=== PATIENT | female | born 1935 | race Caucasian/White ===

== ENCOUNTER 2016-05-20 11:06 | Observation (INO) | payer BC ==
[~2016-05-20] VITALS: Ht 162.6 cm; Wt 76.2 kg
[~2016-05-20 11:06] MED LIST: COEN1CAP17 PO; OMEGCAP2 PO
[2016-05-20] MEDS ORDERED: ONDANSETRON INJ 2 MG/ML 2 ML VIAL IV STA (11:20)
[2016-05-20] MEDS ORDERED: NITROGLYCERIN 0.4 MG SL PER TAB CHARGE SL PRN ×2 (11:30→14:45)
--- NOTE | 2016-05-20 11:49 | DIAGNOSTIC IMAGING REPORT ---
CHEST ONE VIEW PORTABLE HISTORY: Atypical Chest Pain COMPARISON: Chest 08/04/2013. FINDINGS: The lungs are clear. Cardiac silhouette is normal in size. No pleural effusions. No pneumothorax. IMPRESSION: No acute process. Electronically signed by: Tulio Robles M.D. 05/20/2016 11:47 AM
[2016-05-20 11:50] LABS: BASO % 0.7 %; BASO ABS # 0.04 K/uL (0-0.2); COMPLETE YES; EOS % 3.2 %; HEMATOCRIT 43.1 % (37-47); IG% 0.2 %; LYMPH % 25.5 %; LYMPH ABS # 1.44 K/uL (1.2-3.4); MEAN CELL VOLUME 96.6 fL (80-100); MEAN CORPUSCULAR HEMOGLOBIN 33.6 pg (25-34); MEAN CORPUSCULAR HGB CONC 34.8 g/dl (32-36); MEAN PLATELET VOLUME 9.7 fL (7.4-10.4); MONO % 10.5 %; NEUT % 59.9 %; PLATELET COUNT 221 K/uL (130-400); RED BLOOD COUNT 4.46 M/uL (4.2-5.4); WHITE BLOOD COUNT 5.64 K/uL (4.8-10.8)
[2016-05-20 12:10] LABS: ALT/SGPT 76 U/L (12-78); BLOOD UREA NITROGEN 26 mg/dl (7-18); BUN/CREATININE RATIO 21.4 (10-20); CALCIUM 9.3 mg/dl (8.5-10.1); CARBON DIOXIDE 29 mmol/L (21-32); CHLORIDE 104 mmol/L (98-107); GLUCOSE 97 mg/dl (70-99); POTASSIUM 4.1 mmol/L (3.5-5.1); SODIUM 141 mmol/L (136-145)
[2016-05-20 12:16] LABS: ALKALINE PHOSPHATASE 104 U/L (45-117); AST/SGOT 153 U/L (15-37); CKMB/CK RATIO 0.8 (0-3.0)
[2016-05-20] MEDS ORDERED: LEVO25TA PO (12:19)
[2016-05-20] MEDS ORDERED: VYT1020 PO (12:19)
[2016-05-20] MEDS ORDERED: MULT1TAB22 PO (12:19)
[2016-05-20] MEDS ORDERED: ASPCH81X PO (12:19)
[2016-05-20] MEDS ORDERED: CALC-20 PO (12:19)
[2016-05-20] MEDS ORDERED: AMLO5TAB4 PO (12:19)
--- NOTE | 2016-05-20 13:17 | DIAGNOSTIC IMAGING REPORT ---
ABDOMEN 2 VIEWS CLINICAL HISTORY: lower chest pain pain COMPARISON STUDY: No previous studies for comparison. FINDINGS: The soft tissues, psoas shadows, renal outlines and intestinal gas pattern appear normal. There is no evidence for bowel obstruction. There is no evidence for free intraperitoneal air. No abnormal abdominal calcifications are seen. IMPRESSION: Normal study. Electronically signed by: Urbano Jeffries M.D. 05/20/2016 1:15 PM
[2016-05-20] MEDS ORDERED: OPTIRAY 320 IV PRN (13:45)
--- NOTE | 2016-05-20 14:19 | DIAGNOSTIC IMAGING REPORT ---
CHEST CTA for PULMONARY ARTERIES CT DOSE: 507.21 mGycm HISTORY: Atypical chest pain. TECHNIQUE: Multiaxial CT images of the chest were performed following the intravenous administration of contrast to evaluate the pulmonary arteries. Maximal intensity projection images were also obtained. COMPARISON STUDY: Chest 08/04/2013. FINDINGS: Bilateral renal peripelvic cysts. Cholecystectomy. The liver and adrenal glands are unremarkable. Normal spleen. 5 mm nodule within the left thyroid lobe. A 5 mm hypodense nodule within the thyroid isthmus. Tiny hiatus hernia. No pleural or pericardial effusions. The heart is normal in size. No mediastinal or hilar lymphadenopathy. No fractures within the visualized osseous structures. No pneumothorax. No focal lung consolidations to suggest pneumonia. Bibasilar densities favor mild atelectasis. Normal caliber thoracic aorta with no evidence for dissection. Nondiagnostic evaluation of the bilateral lower lobe subsegmental pulmonary arteries due to the motion artifact. Otherwise, the remaining pulmonary arteries show no filling defects to suggest embolus. IMPRESSION: 1. No evidence for pulmonary embolus with limitations as described above. 2. Subcentimeter thyroid nodules. Electronically signed by: Tulio Robles M.D. 05/20/2016 2:17 PM Dictated Date/Time: 05/20/2016 2:07 PM
[2016-05-20] MEDS ORDERED: ONDANSETRON INJ 2 MG/ML 2 ML VIAL IV PRN (14:45)
[2016-05-20] MEDS ORDERED: POLYETHYLENE (MIRALAX) 17 GM PACK PO PRN (14:45)
[2016-05-20] MEDS ORDERED: ACETAMINOPHEN 325 MG TAB PO PRN (14:45)
[2016-05-20] MEDS ORDERED: GI COCKTAIL PO ONE (15:15)
[2016-05-20] MEDS ORDERED: LIDOCAINE HCL 2% VISC SOLN 20 ML UDC ONE (15:17)
[2016-05-20] MEDS ORDERED: ALUMINUM/MAGNESIUM SUSP 30 ML UDC ONE (15:17)
[2016-05-20 15:21] LABS: PROTHROMBIN TIME (PATIENT) 10.2 SECONDS (9.0-12.0)
[2016-05-20] MEDS ORDERED: IV FLUIDS COMPLETED PRN (15:30)
--- NOTE | 2016-05-20 15:41 | History and Physical ---
History & Physical Date & Time of Service: May 20, 2016 at 15:27 Chief Complaint: Chest Pain Primary Care Physician: Kulwant Yun M.D. History of Present Illness Source: patient, family This is an 80 yo f that is presenting to us via EMS with acute onset chest pain which started at 1000. She states she was playing [employer] when she had acute onset epigastric pain which was radiating between both breast. Initially the pain was a sharp 10.5/10 pain which would not improve with walking , rest, positional. She tried taking an ASA 81 mg without improvement. She was concerned because it was unrelenting and called EMS and her daughter. En route her chest pain started to improve and is now not a pain but the sensation of pressure. Initially she also had diaphoresis and a "wobbly" sensation but no headache, syncope or N&V. This has resolved. W/U in ED was negative. She does not have a significant cardiac history and only smoked for 10 years of her life as a young adult. She has had a stress test in the past but not for symptoms but only screening and this was WNL. She notes it was a Dobutamine stress test because she broke her ankle in the past and is unable to walk on an incline. The daughter notes that she does have a history of anxiety however is unmedicated for this. Past Medical/Surgical History Medical Problems: (1) Osteoarthritis Status: Chronic Cholecystectomy CKD II HTN Hyperchol Anxiety Hysterectomy Family History No significant family history Social History Smoking Status: Former Smoker Smokeless Tobacco Use: No Alcohol Use: none Drug Use: none Marital Status: Housing status: lives alone Occupational Status: retired Multi-Drug Resistant Organisms History of MDRO: No Allergies Coded Allergies: Caffeine (Verified Allergy, Unknown, ., 05/20/16) Uncoded Allergies: BRONCHODILATORS (Allergy, Unknown, 06/28/02) SYMPATHOMIMADR (Allergy, Unknown, 08/04/13) Home Medications Scheduled Amlodipine Besylate (Norvasc), 5 MG PO DAILY Aspirin (Aspirin Chewable), 81 MG PO DAILY Calcium Carbonate-Vitamin D (Calcium 600 + D), 1 TAB PO BID Ezetimibe/Simvastatin (Vytorin 10-20 mg), 10-20 MG PO DAILY Levothyroxine Sodium (Synthroid), 25 MCG PO DAILY Multiple Vitamins W/ Minerals (One Daily For Women), 1 TAB PO DAILY Review of Systems Constitutional: No fever Eyes: No worsening of vision ENT: No hearing loss Respiratory: No cough, No dyspnea at rest, No dyspnea on exertion, No shortness of breath, No sputum, No wheezing Cardiovascular: + chest pain Abdomen: + nausea, + vomiting, No constipation, No diarrhea, No pain Musculoskeletal: No joint pain, No muscle pain Genitourinary - Female: No dysuria, No hematuria Neurologic: No memory loss, No numbness/tingling, No weakness Psychiatric: No depression symptoms Endocrine: No fatigue Integumentary: No itch, No rash Physical Exam Vital Signs Date Time Temp Pulse Resp B/P Pulse Ox O2 Delivery O2 Flow Rate FiO2 05/20/16 14:33 84 14 110/90 94 Room Air 05/20/16 13:02 82 16 157/77 95 Room Air 05/20/16 11:18 83 05/20/16 11:14 36.6 83 17 147/73 98 Room Air 05/20/16 11:14 95 Room Air 05/20/16 11:14 95 Room Air General Appearance: WD/WN, no apparent distress Head: normocephalic, atraumatic Eyes: normal inspection ENT: normal ENT inspection Neck: supple Respiratory/Chest: lungs clear, normal breath sounds, no respiratory distress, no accessory muscle use Cardiovascular: regular rate, rhythm, no murmur Abdomen/GI: normal bowel sounds, soft, no organomegaly, + tenderness (to palpation of epigastric area), + pertinent finding (no rebound, negative erazo , CVS, obturator and mcburney) Back: normal inspection, no CVA tenderness Extremities/Musculoskelatal: normal inspection, no calf tenderness, no pedal edema, + pertinent finding (brace left ankle) Neurologic/Psych: alert, normal mood/affect, oriented x 3 Skin: normal color, warm/dry, no rash Lymphatic: no adenopathy Diagnostics Laboratory Results Results Past 24 Hours Test 05/20/16 11:30 Range/Units White Blood Count 5.64 4.8-10.8 K/uL Red Blood Count 4.46 4.2-5.4 M/uL Hemoglobin 15.0 12.0-16.0 g/dL Hematocrit 43.1 37-47 % Mean Corpuscular Volume 96.6 80-100 fL Mean Corpuscular Hemoglobin 33.6 25-34 pg Mean Corpuscular Hemoglobin Concent 34.8 32-36 g/dl Platelet Count 221 130-400 K/uL Mean Platelet Volume 9.7 7.4-10.4 fL Neutrophils (%) (Auto) 59.9 % Lymphocytes (%) (Auto) 25.5 % Monocytes (%) (Auto) 10.5 % Eosinophils (%) (Auto) 3.2 % Basophils (%) (Auto) 0.7 % Neutrophils # (Auto) 3.38 1.4-6.5 K/uL Lymphocytes # (Auto) 1.44 1.2-3.4 K/uL Monocytes # (Auto) 0.59 0.11-0.59 K/uL Eosinophils # (Auto) 0.18 0-0.5 K/uL Basophils # (Auto) 0.04 0-0.2 K/uL RDW Standard Deviation 45.8 36.4-46.3 fL RDW Coefficient of Variation 13.0 11.5-14.5 % Immature Granulocyte % (Auto) 0.2 % Immature Granulocyte # (Auto) 0.01 0.00-0.02 K/uL Prothrombin Time 10.2 9.0-12.0 SECONDS Prothromb Time International Ratio 1.0 0.9-1.1 D-Dimer 990 0-500 ug/L FEU Sodium Level 141 136-145 mmol/L Potassium Level 4.1 3.5-5.1 mmol/L Chloride Level 104 98-107 mmol/L Carbon Dioxide Level 29 21-32 mmol/L Anion Gap 8.0 3-11 mmol/L Blood Urea Nitrogen 26 7-18 mg/dl Creatinine 1.20 0.60-1.20 mg/dl Est Creatinine Clear Calc Drug Dose 36.9 ml/min Estimated GFR () 48.7 Estimated GFR (Non- 42.1 BUN/Creatinine Ratio 21.4 10-20 Random Glucose 97 70-99 mg/dl Calcium Level 9.3 8.5-10.1 mg/dl Total Bilirubin 0.6 0.2-1 mg/dl Direct Bilirubin 0.2 0-0.2 mg/dl Aspartate Amino Transf (AST/SGOT) 153 15-37 U/L Alanine Aminotransferase (ALT/SGPT) 76 12-78 U/L Alkaline Phosphatase 104 45-117 U/L Total Creatine Kinase 61 26-192 U/L Creatine Kinase MB 0.5 0.5-3.6 ng/ml Creatine Kinase MB Ratio 0.8 0-3.0 Troponin I < 0.015 0-0.045 ng/ml Total Protein 6.7 6.4-8.2 gm/dl Albumin 3.3 3.4-5.0 gm/dl Lipase 235 73-393 U/L Diagnostic Radiology CHEST CTA for PULMONARY ARTERIES CT DOSE: 507.21 mGycm HISTORY: Atypical chest pain. TECHNIQUE: Multiaxial CT images of the chest were performed following the intravenous administration of contrast to evaluate the pulmonary arteries. Maximal intensity projection images were also obtained. COMPARISON STUDY: Chest 08/04/2013. FINDINGS: Bilateral renal peripelvic cysts. Cholecystectomy. The liver and adrenal glands are unremarkable. Normal spleen. 5 mm nodule within the left thyroid lobe. A 5 mm hypodense nodule within the thyroid isthmus. Tiny hiatus hernia. No pleural or pericardial effusions. The heart is normal in size. No mediastinal or hilar lymphadenopathy. No fractures within the visualized osseous structures. No pneumothorax. No focal lung consolidations to suggest pneumonia. Bibasilar densities favor mild atelectasis. Normal caliber thoracic aorta with no evidence for dissection. Nondiagnostic evaluation of the bilateral lower lobe subsegmental pulmonary arteries due to the motion artifact. Otherwise, the remaining pulmonary arteries show no filling defects to suggest embolus. IMPRESSION: 1. No evidence for pulmonary embolus with limitations as described above. 2. Subcentimeter thyroid nodules. ABDOMEN 2 VIEWS CLINICAL HISTORY: lower chest pain pain COMPARISON STUDY: No previous studies for comparison. FINDINGS: The soft tissues, psoas shadows, renal outlines and intestinal gas pattern appear normal. There is no evidence for bowel obstruction. There is no evidence for free intraperitoneal air. No abnormal abdominal calcifications are seen. IMPRESSION: Normal study. CHEST ONE VIEW PORTABLE HISTORY: Atypical Chest Pain COMPARISON: Chest 08/04/2013. FINDINGS: The lungs are clear. Cardiac silhouette is normal in size. No pleural effusions. No pneumothorax. IMPRESSION: No acute process. EKG bmp 66 qtc 438 NSR, no ischemic changes, PACs Impression Assessment and Plan This is an 80 yo f that is suffering from chest pain NYD. She does not have significant cardiac history however will r/o chest pain overnight and with dobutamine test in am. Will also r/o GERD with GI cocktail trial Chest pain NYD with suspicion of cardiac origin - tele admission- obs - troponin x 3 - GI cocktail trial - Dobutamine stress in am - TSH/T4 HTN - continue home meds Hypercholesterolemia - Continue home meds CKD III- stable - augment medication doses according to Cr[facility] Hypothyroidism - continue home meds - recheck tsh as may be reason for increased anxiety DVT prophylaxis Heparin because of renal insuff FULL CODE Philomena - daughter- [phone] Resident Physician Supervision Note: I interviewed and examined the patient. Discussed with Dr. Miranda Metzger and agree with findings and plan as documented in the note. Any exceptions or clarifications are listed here: None Pt with acute chest pain at rest, may have some gerd symptoms vitals are stable car is regular lungs are clear abdomen is benign at this point will have serial troponin, and consider stress testing 05/21/16. Consider GI work up as outpt if negative Daughter admits high anxiety in the patient Documented By: Flip Magallanes Level of Care Telemetry Resuscitation Status FULL RESUSCITATION VTE Prophylaxis VTE Risk Assessment Done? Y/N: Yes Risk Level: Moderate Given or contraindicated: Unfractionated heparin SQ Social Service Consult >80 yr.& Lives Alone Note Total Time: Critical Care 30 - 74 minutes Additional Copies To Kulwant Yun M.D.
--- NOTE | 2016-05-20 17:30 | EMERGENCY ROOM VISIT NOTE ---
History Report prepared by Joe: Melodie Reyes Under the Supervision of: Dr. Phil Verde D.O. First contact with patient: 11:11 Stated Complaint: CHEST PAIN History of Present Illness The patient is an 80 year old female arriving by ambulance from home who presents to the Emergency Room with complaints of a sudden onset of pain to her mid-lower chest 1 hour prior to arrival. Currently, she is in mild discomfort, but she states that she did have relief after taking 1 aspirin at home and nitroglycerin via EMS en route to the ED. However, she is now feeling slightly short of breath. Prior to the time of onset, the patient was sitting in a chair playing video games when she got up and started walking up the stairs. When she got about half way up the stairs, the patient suddenly contracted a severe pain to her mid-lower chest, which caused her to buckle over. During the episode, the patient also began sweating, but she denies becoming nauseous or experiencing radiation of her pain to her neck or down her jaw. Patient's last bowel movement was early this morning, and it appeared normal at that time. She denies headache, change in vision, fevers, vomiting, diarrhea, pain with urination, melena and numbness/weakness to her extremities. Patient has a history of hypertension and diabetes, which she controls with diet. 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 A total of 10 systems reviewed and were otherwise negative. Past Medical & Surgical Medical Problems: (1) Diabetes mellitus (2) HTN (hypertension) (3) Osteoarthritis Social History Smoking Status: Former Smoker Marital Status: Occupation Status: retired Current/Historical Medications Scheduled Amlodipine Besylate (Norvasc), 5 MG PO DAILY Aspirin (Aspirin Chewable), 81 MG PO DAILY Calcium Carbonate-Vitamin D (Calcium 600 + D), 1 TAB PO BID Ezetimibe/Simvastatin (Vytorin 10-20 mg), 10-20 MG PO DAILY Levothyroxine Sodium (Synthroid), 25 MCG PO DAILY Multiple Vitamins W/ Minerals (One Daily For Women), 1 TAB PO DAILY Allergies Coded Allergies: Caffeine (Verified Allergy, Unknown, ., 05/20/16) Uncoded Allergies: BRONCHODILATORS (Allergy, Unknown, 06/28/02) SYMPATHOMIMADR (Allergy, Unknown, 08/04/13) Physical Exam Vital Signs Date Time Temp Pulse Resp B/P Pulse Ox O2 Delivery O2 Flow Rate FiO2 05/20/16 14:33 84 14 110/90 94 Room Air 05/20/16 13:02 82 16 157/77 95 Room Air 05/20/16 11:18 83 05/20/16 11:14 36.6 83 17 147/73 98 Room Air 05/20/16 11:14 95 Room Air 05/20/16 11:14 95 Room Air Physical Exam GENERAL: Sitting up in bed, alert, well appearing, well nourished, no distress, non-toxic EYE EXAM: normal conjunctiva. OROPHARYNX: no exudate, no erythema, lips, buccal mucosa, and tongue normal and mucous membranes are moist NECK: supple, no nuchal rigidity, no adenopathy, non-tender LUNGS: Clear to auscultation. Normal chest wall mechanics HEART: no murmurs, S1 normal and S2 normal ABDOMEN: abdomen soft, non-tender, normo-active bowel sounds, no masses, no rebound or guarding. No palpable pulsatile mass. BACK: Back is symmetrical on inspection and there is no deformity, no midline tenderness, no CVA tenderness. SKIN: no rashes and no bruising UPPER EXTREMITIES: upper extremities are grossly normal. Radial pulses equal, bilaterally. LOWER EXTREMITIES: No pitting edema. Calves equal, bilaterally. NEURO EXAM: Normal sensorium, cranial nerves II-XII grossly intact, normal speech, no gross weakness of arms, no gross weakness of legs. Medical Decision & Procedures ER Provider Diagnostic Interpretation: Xray results per the radiologist and my interpretation. Other results have been interpreted by the radiologist and reviewed by me. CT:Per my review, radiologist interpretation. CHEST ONE VIEW PORTABLE HISTORY: Atypical Chest Pain COMPARISON: Chest 08/04/2013. FINDINGS: The lungs are clear. Cardiac silhouette is normal in size. No pleural effusions. No pneumothorax. IMPRESSION: No acute process. Electronically signed by: Tulio Robles M.D. 05/20/2016 11:47 AM ABDOMEN 2 VIEWS CLINICAL HISTORY: lower chest pain pain COMPARISON STUDY: No previous studies for comparison. FINDINGS: The soft tissues, psoas shadows, renal outlines and intestinal gas pattern appear normal. There is no evidence for bowel obstruction. There is no evidence for free intraperitoneal air. No abnormal abdominal calcifications are seen. IMPRESSION: Normal study. Electronically signed by: Urbano Jeffries M.D. 05/20/2016 1:15 PM CHEST CTA for PULMONARY ARTERIES CT DOSE: 507.21 mGycm HISTORY: Atypical chest pain. TECHNIQUE: Multiaxial CT images of the chest were performed following the intravenous administration of contrast to evaluate the pulmonary arteries. Maximal intensity projection images were also obtained. COMPARISON STUDY: Chest 08/04/2013. FINDINGS: Bilateral renal peripelvic cysts. Cholecystectomy. The liver and adrenal glands are unremarkable. Normal spleen. 5 mm nodule within the left thyroid lobe. A 5 mm hypodense nodule within the thyroid isthmus. Tiny hiatus hernia. No pleural or pericardial effusions. The heart is normal in size. No mediastinal or hilar lymphadenopathy. No fractures within the visualized osseous structures. No pneumothorax. No focal lung consolidations to suggest pneumonia. Bibasilar densities favor mild atelectasis. Normal caliber thoracic aorta with no evidence for dissection. Nondiagnostic evaluation of the bilateral lower lobe subsegmental pulmonary arteries due to the motion artifact. Otherwise, the remaining pulmonary arteries show no filling defects to suggest embolus. IMPRESSION: 1. No evidence for pulmonary embolus with limitations as described above. 2. Subcentimeter thyroid nodules. Electronically signed by: Tulio Robles M.D. 05/20/2016 2:17 PM Dictated Date/Time: 05/20/2016 2:07 PM Laboratory Results 05/20/16 11:30 Red Blood Count 4.46, Mean Corpuscular Volume 96.6, Mean Corpuscular Hemoglobin 33.6, Mean Corpuscular Hemoglobin Concent 34.8, Mean Platelet Volume 9.7, Neutrophils (%) (Auto) 59.9, Lymphocytes (%) (Auto) 25.5, Monocytes (%) (Auto) 10.5, Eosinophils (%) (Auto) 3.2, Basophils (%) (Auto) 0.7, Neutrophils # (Auto ) 3.38, Lymphocytes # (Auto) 1.44, Monocytes # (Auto) 0.59, Eosinophils # (Auto ) 0.18, Basophils # (Auto) 0.04 05/20/16 11:30 Test 05/20/16 11:30 White Blood Count 5.64 K/uL (4.8-10.8) Red Blood Count 4.46 M/uL (4.2-5.4) Hemoglobin 15.0 g/dL (12.0-16.0) Hematocrit 43.1 % (37-47) Mean Corpuscular Volume 96.6 fL (80-100) Mean Corpuscular Hemoglobin 33.6 pg (25-34) Mean Corpuscular Hemoglobin Concent 34.8 g/dl (32-36) Platelet Count 221 K/uL (130-400) Mean Platelet Volume 9.7 fL (7.4-10.4) Neutrophils (%) (Auto) 59.9 % Lymphocytes (%) (Auto) 25.5 % Monocytes (%) (Auto) 10.5 % Eosinophils (%) (Auto) 3.2 % Basophils (%) (Auto) 0.7 % Neutrophils # (Auto) 3.38 K/uL (1.4-6.5) Lymphocytes # (Auto) 1.44 K/uL (1.2-3.4) Monocytes # (Auto) 0.59 K/uL (0.11-0.59) Eosinophils # (Auto) 0.18 K/uL (0-0.5) Basophils # (Auto) 0.04 K/uL (0-0.2) RDW Standard Deviation 45.8 fL (36.4-46.3) RDW Coefficient of Variation 13.0 % (11.5-14.5) Immature Granulocyte % (Auto) 0.2 % Immature Granulocyte # (Auto) 0.01 K/uL (0.00-0.02) Prothrombin Time 10.2 SECONDS (9.0-12.0) Prothromb Time International Ratio 1.0 (0.9-1.1) D-Dimer 990 ug/L FEU (0-500) Anion Gap 8.0 mmol/L (3-11) Est Creatinine Clear Calc Drug Dose 36.9 ml/min Estimated GFR () 48.7 Estimated GFR (Non- 42.1 BUN/Creatinine Ratio 21.4 (10-20) Calcium Level 9.3 mg/dl (8.5-10.1) Total Bilirubin 0.6 mg/dl (0.2-1) Direct Bilirubin 0.2 mg/dl (0-0.2) Aspartate Amino Transf (AST/SGOT) 153 U/L (15-37) Alanine Aminotransferase (ALT/SGPT) 76 U/L (12-78) Alkaline Phosphatase 104 U/L (45-117) Total Creatine Kinase 61 U/L (26-192) Creatine Kinase MB 0.5 ng/ml (0.5-3.6) Creatine Kinase MB Ratio 0.8 (0-3.0) Troponin I < 0.015 ng/ml (0-0.045) Total Protein 6.7 gm/dl (6.4-8.2) Albumin 3.3 gm/dl (3.4-5.0) Lipase 235 U/L (73-393) Laboratory results per my review. Medications Administered Medications (Trade) Dose Ordered Sig/Gela Route Start Time Stop Time Status Last Admin Dose Admin Ondansetron HCl (Zofran Inj) 4 mg NOW STAT IV 05/20/16 11:20 05/20/16 11:22 DC 05/20/16 11:42 4 MG Nitroglycerin (Nitrostat Tab) 0.4 mg Q5M PRN SL 05/20/16 11:30 05/20/16 15:41 DC 05/20/16 14:42 0.4 MG ECG Indication: chest pain Rate (beats per minute): 80 Rhythm: sinus rhythm Findings: PAC, Q waves (anterior and inferior), other (Low voltage. T wave flattening. ) Change: no significant change (when compared to EKG from July,.) ED Course ED COURSE: Vital signs were reviewed and showed hypertension. The patients medical record was reviewed The above diagnostic studies were performed and reviewed. ED treatments and interventions as stated above. 1112: The patient was evaluated in room C10. A complete history and physical examination was performed. 1120: Zofran 4 mg IV was ordered. 1130: Nitroglycerin 0.4 mg SL was ordered. 1218: Upon reevaluation, the patient was pain free, but was still feeling slightly short of breath. 1330: I reevaluated the patient at this time and updated her on the results of her workup that have returned. The results of her CT are pending. 1420: Upon reevaluation, patient was doing well. I updated her on the results of her workup. The hospitalist will be contacted. 1430: After discussion with Dr. Magallanes, the patient will continue to be evaluated by the [facility] hospitalist for further management. Patient verbalized her understanding and agreement with this treatment plan. Based on the patients age, coexisting illnesses, exam and lab findings the decision to treat as an inpatient was made. The patient remained stable while under my care. The patient will be evaluated for further management. Medical Decision Differential diagnoses includes but is not limited to acute coronary syndrome, myocardial infarction, pericarditis, pulmonary embolus, aortic dissection, pneumonia, pneumothorax, musculoskeletal, shingles, esophageal. Patient is an 80-year-old female who presents the ER for lower chest pain radiating up into her jaw associated with some shortness of breath. Labs show no significant leukocytosis or anemia. BMP along with LFTs, bilirubin and lipase are unremarkable. Troponin was negative. D-dimer was positive. CT PE was negative for dissection/PE. This was performed with her pain radiating through to her back and a positive d-dimer. Pain was relieved completely with nitroglycerin. She was given aspirin previously. EKG was nondiagnostic. Chest x-ray was unremarkable. Patient was admitted to internal medicine for chest pain associated with shortness breath and jaw pain. Consults Time Called: 1420 Consulting Physician: Dr. Magallanes - [facility] Returned Call: 1430 Discussed the patient's case. She will continue to be evaluated by the [facility] hospitalist for further management. Impression Primary Impression: Precordial chest pain Scribe Attestation The scribe's documentation has been prepared under my direction and personally reviewed by me in its entirety. I confirm that the note above accurately reflects all work, treatment, procedures, and medical decision making performed by me. Departure Information Dispostion Being Evaluated By Hospitalist ([facility]) Referrals Kulwant Yun M.D. (PCP)
[2016-05-20 18:26] VITALS: O2SAT 94; Ht 162.6 cm; Wt 76.2 kg
[2016-05-20] MEDS ORDERED: ENOXAPARIN 40 MG/0.4 ML SYR SC SCH (19:00)
[2016-05-20] MEDS: CALCIUM 600MG + VIT D 400 IU TAB PO SCH (19:54)
[2016-05-20 20:00] VITALS: BP 152/77; PULSE 82; TEMP 36.5; O2SAT 94
[2016-05-20 23:59] VITALS: BP 156/74; PULSE 66; TEMP 36.8; O2SAT 95
[2016-05-21 05:15] VITALS: BP 127/73; PULSE 63; TEMP 36.8; O2SAT 94
[2016-05-21] MEDS ORDERED: LEVOTHYROXINE 25 MCG TAB PO SCH (06:30)
[2016-05-21 07:23] VITALS: BP 143/77; PULSE 72; TEMP 36.6; O2SAT 96
[2016-05-21 07:29] LABS: BUN/CREATININE RATIO 18.7 (10-20); CALCIUM 9.3 mg/dl (8.5-10.1); CREATININE 1.2 mg/dl (0.60-1.20); POTASSIUM 3.8 mmol/L (3.5-5.1)
[2016-05-21 07:40] LABS: THYROID STIMULATING HORMONE 1.86 uIu/ml (0.300-4.500)
[2016-05-21 07:57] VITALS: O2SAT 96
[2016-05-21] MEDS ORDERED: AMLODIPINE BESYLATE 5 MG TAB PO SCH (09:00)
[2016-05-21] MEDS ORDERED: ASPIRIN 81 MG ECTAB PO SCH (09:00)
[2016-05-21] MEDS ORDERED: EZETIMIBE/SIMVASTATIN 10/20 TAB PO SCH (09:00)
[2016-05-21] MEDS ORDERED: CEROVITE ADV FORMULA TAB PO SCH (09:00)
[2016-05-21] MEDS: CALCIUM 600MG + VIT D 400 IU TAB PO SCH (09:17)
[2016-05-21] MEDS ORDERED: DOBUTamine HCL 12.5 MG/ML 20 ML VIAL ONE (10:49)
[2016-05-21] MEDS ORDERED: ATROPINE SULFATE 0.1 MG/ML 5ML SYR ONE (10:49)
[2016-05-21] MEDS ORDERED: METOPROLOL TARTRATE 1 MG/ML VIAL ONE (10:49)
[2016-05-21] MEDS ORDERED: PERFLUTREN LIPID MICROSPHERE (DEFINITY) IV ONE (11:52)
[2016-05-21 12:00] VITALS: O2SAT 96
--- NOTE | 2016-05-21 12:41 | DOBUTAMINE ECHO ---
*NOTICE TO RECEIVING [employer] This information is strictly Confidential and protected under [place] law. [place] law prohibits you from making any further disclosure of this information unless further disclosure is expressly permitted by the written consent of the person to whom it pertains or is authorized by law. A general authorization for the release of medical or other information is not sufficient for this purpose. Hospital accepts no responsibility if the information is made available to any other person, INCLUDING THE PATIENT. Interpretation Summary * Name: TOÑITO HARRIS Study Date: 05/21/2016 10:08 AM BP: 146/73 mmHg * Patient Location: [facility]\S\N286\S\2 HR: 81 * : 1935 (M/d/yyyy) Gender: Female Height: 64 in * Age: 80 yrs Ethnicity: [place] Weight: 175 lb * Ordering Physician: Miranda Jackson * Referring Physician: Self, Referred * Performed By: Janneth Pride RDCS * * Reason For Study: Chest Pain * BSA: 1.8 m2 * The stress echocardiogram is negative for inducible ischemia. * The stress ECG response was normal * Baseline ECG was essentially normal. No symptoms were noted. Procedure Details * Left Ventricle The left ventricle is normal in size. There is borderline concentric left ventricular hypertrophy. Ejection Fraction = 60-65%. Left ventricular systolic function is normal. Resting wall motion: Normal. Stress wall motion: Appropriate increase in Left ventricular systolic function and decrease in cavity size. No stress induced segmental wall motion abnormalities. * Right Ventricle The right ventricle is normal in size and function. * Atria The left atrium is borderline dilated. Right atrial size is normal. The interatrial septum is intact with no evidence for an atrial septal defect. * Mitral Valve The mitral valve is normal in structure and function. There is mild mitral regurgitation. * Tricuspid Valve The tricuspid valve is normal in structure and function. There is mild tricuspid regurgitation. Right ventricular systolic pressure is normal. * Aortic Valve The aortic valve is normal in structure and function. The aortic valve is trileaflet. No aortic regurgitation is present. * Pulmonic Valve The pulmonary valve is not well seen, but the Doppler examination is normal without significant regurgitation or stenosis. Mild pulmonic valvular regurgitation. * Great Vessels The aortic root is normal size. No obvious dissection could be visualized. The pulmonary artery is not well visualized, but is probably normal size. * Pericardium There is no pericardial effusion. * Stress Parameters Rest heart rate was '81' BPM. Rest blood pressure was '146/73' Maximum heart rate achieved was 130 bpm. Maximum heart rate was 94 % of maximum age-predicted heart rate. Maximum blood pressure was '161/77' Maximum Dobutamine infusion rate was '30' mcg/kg/min. Dobutamine infusion was terminated due to achieving target heart rate A total of 2.5 mg of IV Metoprolol was administered to reverse Dobutamine-induced tachycardia. * Left Ventricular Diastolic Function Grade I diastolic dysfunction, (abnormal relaxation pattern). * * MMode 2D Measurements and Calculations * IVSd 0.91 cm * IVSs 1.3 cm * * LVIDd 3.0 cm * LVIDs 2.0 cm * LVPWd 1.0 cm * LVPWs 1.3 cm * * IVS/LVPW 0.87 * FS 34.6 % * EDV(Teich) 35.9 ml * ESV(Teich) 12.4 ml * EF(Teich) 65.4 % * * EDV(cubed) 27.9 ml * ESV(cubed) 7.8 ml * EF(cubed) 72.1 % * % IVS thick 41.0 % * % LVPW thick 19.4 % * * LV mass(C)d 80.6 grams * LV mass(C)dI 43.6 grams/m\S\2 * LV mass(C)s 70.6 grams * LV mass(C)sI 38.2 grams/m\S\2 * * SV(Teich) 23.5 ml * SI(Teich) 12.7 ml/m\S\2 * SV(cubed) 20.1 ml * SI(cubed) 10.9 ml/m\S\2 * * Ao root diam 2.8 cm * Ao root area 6.2 cm\S\2 * ACS 1.4 cm * LA dimension 3.2 cm * * LA/Ao 1.1 * * LVAd ap4 17.4 cm\S\2 * LVLd ap4 6.2 cm * EDV(MOD-sp4) 43.4 ml * EDV(sp4-el) 41.8 ml * LVAs ap4 9.3 cm\S\2 * LVLs ap4 5.0 cm * ESV(MOD-sp4) 16.7 ml * ESV(sp4-el) 14.6 ml * EF(MOD-sp4) 61.5 % * EF(sp4-el) 64.9 % * * LVAd ap2 16.2 cm\S\2 * LVLd ap2 6.6 cm * EDV(MOD-sp2) 37.0 ml * EDV(sp2-el) 33.7 ml * LVAs ap2 8.4 cm\S\2 * LVLs ap2 5.5 cm * ESV(MOD-sp2) 12.1 ml * ESV(sp2-el) 10.8 ml * EF(MOD-sp2) 67.3 % * EF(sp2-el) 68.0 % * * LVLd %diff 7.0 % * EDV(MOD-bp) 40.5 ml * LVLs %diff 9.2 % * ESV(MOD-bp) 14.7 ml * EF(MOD-bp) 63.6 % * * SV(MOD-sp4) 26.7 ml * SI(MOD-sp4) 14.4 ml/m\S\2 * * SV(MOD-sp2) 24.9 ml * SI(MOD-sp2) 13.5 ml/m\S\2 * * SV(MOD-bp) 25.8 ml * SI(MOD-bp) 13.9 ml/m\S\2 * * SV(sp4-el) 27.1 ml * SI(sp4-el) 14.7 ml/m\S\2 * * SV(sp2-el) 22.9 ml * SI(sp2-el) 12.4 ml/m\S\2 * * * Doppler Measurements and Calculations * MV E max robe 48.4 cm/sec * MV A max robe 90.3 cm/sec * * MV E/A 0.54 * * MV dec time 0.31 sec * * Ao V2 max 129.0 cm/sec * Ao max PG 6.7 mmHg * Ao max PG (full) 2.8 mmHg * * LV V1 max PG 3.8 mmHg * * LV V1 max 97.7 cm/sec * * MR max robe 452.5 cm/sec * MR max PG 81.9 mmHg * * PA V2 max 96.6 cm/sec * PA max PG 3.7 mmHg * * PI max robe 161.8 cm/sec * PI max PG 10.5 mmHg * PI dec slope 228.5 cm/sec\S\2 * PI P1/2t 207.4 msec * * TR max robe 183.3 cm/sec * * * *
[2016-05-21 13:19] VITALS: BP 145/82; PULSE 84; TEMP 36.4; O2SAT 92
--- NOTE | 2016-05-21 13:42 | Discharge Instructions ---
Discharge Instructions Admission Reason for Admission: Chest Pain Discharge Discharge Diagnosis / Problem: Chest pain Discharge Goals Goal(s): Decrease discomfort, Improve function, Increase independence, Improve disease control, Diagnostic testing, Therapeutic intervention Activity Recommendations Activity Limitations: resume your previous activity Driving or Machine Use: no limitations . Instructions / Follow-Up Instructions / Follow-Up Patient to be discharged home Chest pain unlikely cardiac in nature No changes in home medications If worsening chest pain, please report to ER Please keep appointment with Dr Daily and Dr Grajeda Current Hospital Diet Patient's current hospital diet: AHA Diet (Heart Healthy) Discharge Diet Recommended Diet: Low Sodium Diet (2gm Na), Low Fat Diet Pending Studies Studies pending at discharge: no Laboratory Results Lipid Panel Test 05/21/16 06:40 Range/Units Triglycerides Level 103 0-150 mg/dl Cholesterol Level 154 0-200 mg/dl HDL Cholesterol 78 mg/dl Cholesterol/HDL Ratio 2.0 LDL Cholesterol, Calculated 55 mg/dl Medical Emergencies . Who to Call and When: Medical Emergencies: If at any time you feel your situation is an emergency, please call 911 immediately. . Non-Emergent Contact Non-Emergency issues call your: Primary Care Provider Call Non-Emergent contact if: your pain is worsening . . "Provider Documentation" section prepared by Peter Stoddard. VTE Core Measure Inpt VTE Proph given/why not?: Unfractionated heparin SQ
[2016-05-21 13:55] VITALS: BP 145/82; PULSE 84; TEMP 36.4; O2SAT 92
--- NOTE | 2016-05-21 14:11 | Discharge Summary ---
Discharge Summary Admission Date: May 20, 2016 at 14:36 Discharge Date: May 21, 2016 Discharge Disposition: Home Principal Diagnosis: Chest pain rule out ACS Procedures: Dobutamine stress test Medication Reconciliation Continued Medications: Amlodipine Besylate (Norvasc) 5 Mg Tab 5 MG PO DAILY, TAB Aspirin (Aspirin Chewable) 81 Mg Chew 81 MG PO DAILY, TAB Calcium Carbonate-Vitamin D (Calcium 600 + D) 1 Tab Tab 1 TAB PO BID Ezetimibe/Simvastatin (Vytorin 10-20 mg) 1 Tab Tab 10-20 MG PO DAILY Levothyroxine Sodium (Synthroid) 25 Mcg Tab 25 MCG PO DAILY, TAB Multiple Vitamins W/ Minerals (One Daily For Women) 1 Tab Tab 1 TAB PO DAILY Discharge Exam Review of Systems: Constitutional: No chills, No fever Respiratory: No cough, No dyspnea on exertion, No shortness of breath, No sputum, No wheezing Cardiovascular: No chest pain, No orthopnea Abdomen: No diarrhea, No nausea, No pain, No vomiting Musculoskeletal: No joint pain, No muscle pain Genitourinary - Female: No dysuria, No urinary frequency Neurologic: No paralysis, No weakness Physical Exam: General Appearance: WD/WN, no apparent distress Neck: supple, no adenopathy Respiratory/Chest: chest non-tender, lungs clear, normal breath sounds Cardiovascular: no edema, no gallop Abdomen / GI: non tender, soft Neurologic/Psychiatric: alert, oriented x 3 Hospital Course HPI This is an 80 yo f that is presenting to us via EMS with acute onset chest pain which started at 1000. She states she was playing [employer] when she had acute onset epigastric pain which was radiating between both breast. Initially the pain was a sharp 10.5/10 pain which would not improve with walking, rest, positional. She tried taking an ASA 81 mg without improvement. She was concerned because it was unrelenting and called EMS and her daughter. En route her chest pain started to improve and is now not a pain but the sensation of pressure. Initially she also had diaphoresis and a "wobbly" sensation but no headache, syncope or N&V. This has resolved. W/U in ED was negative. She does not have a significant cardiac history and only smoked for 10 years of her life as a young adult. She has had a stress test in the past but not for symptoms but only screening and this was WNL. She notes it was a Dobutamine stress test because she broke her ankle in the past and is unable to walk on an incline. The daughter notes that she does have a history of anxiety however is unmedicated for this. Chest pain NYD with suspicion of cardiac origin - tele admission- obs - troponin x 3 neg - GI cocktail given x 1 - Dobutamine stress 05/21/15 - EF 60-65%, no regional wall abnormalities, no inducible ischemia - TSH/T4 WNL - Chest pain likely from anxiety vs musculoskeletal or both, pt reports lots of stressors within the family. Chest pain also reproducible on palpation HTN - continue home meds Hypercholesterolemia - Continue home meds CKD III- stable - augment medication doses according to CrCl Hypothyroidism - continue home meds - recheck tsh as may be reason for increased anxiety DVT prophylaxis Heparin because of renal insuff FULL CODE Total Time Spent: Greater than 30 minutes This includes examination of the patient, discharge planning, medication reconciliation, and communication with other providers. Discharge Instructions Please refer to the electronic Patient Visit Report (Discharge Instructions) for additional information. Additional Copies To Kulwant Yun M.D.
== END 2016-05-21 15:03 | disposition home or self-care (01) ==
LOC: ENRESERVDT → ENRESERVTM → EDBD 11:06 → C.EDC 11:07 → C.EDINP 14:36 → C.MED 21:58
PROVIDERS: ADMIT Internal Medicine; ATTEND Hospitalist
DX: R07.9 Chest pain, unspecified (principal); E78.00 Pure hypercholesterolemia, unspecified; N18.3 Chronic kidney disease, stage 3 (moderate); I12.9 Hypertensive chronic kidney disease with stage 1 through stage 4 chronic kidney disease, or unspecified chronic kidney disease; E03.9 Hypothyroidism, unspecified; N28.1 Cyst of kidney, acquired; E04.1 Nontoxic single thyroid nodule; M19.90 Unspecified osteoarthritis, unspecified site; Z90.49 Acquired absence of other specified parts of digestive tract; E11.9 Type 2 diabetes mellitus without complications; Z87.891 Personal history of nicotine dependence; Z79.82 Long term (current) use of aspirin; Z90.710 Acquired absence of both cervix and uterus; Z79.899 Other long term (current) drug therapy

== ENCOUNTER 2016-05-26 09:08 | Emergency (ER) | payer BC ==
[~2016-05-26] VITALS: Ht 162.6 cm; Wt 77.0 kg
[~2016-05-26 09:08] MED LIST changes: +AMLO5TAB4 PO; +ASPCH81X PO; +CALC-20 PO; -COEN1CAP17 PO; +LEVO25TA PO; +MULT1TAB22 PO; -OMEGCAP2 PO; +VYT1020 PO
[2016-05-26 09:17] VITALS: TEMP 36.5; Ht 162.6 cm; Wt 77.0 kg
[2016-05-26] MEDS ORDERED: LEVO50TA6 PO (09:58)
[2016-05-26] MEDS ORDERED: SERT50TA PO (09:58)
[2016-05-26] MEDS ORDERED: COEN150C PO (09:58)
[2016-05-26] MEDS ORDERED: OMEG10007 PO (09:58)
[2016-05-26] MEDS ORDERED: ZNTT/150 PO (09:58)
--- NOTE | 2016-05-26 10:24 | EMERGENCY ROOM VISIT NOTE ---
History Report prepared by Joe: Polo Villarreal Under the Supervision of: Dr. Dell Connor M.D. First contact with patient: 10:09 Chief Complaint: CONSTIPATION Stated Complaint: RECTAL BLEEDING-CONSTIPATION Nursing Triage Summary: Pt reports she has been constipated for about 4 days This morning she felt she needed to have a BM She was unable to get stool to pass so she tried to remove stool with finger Pt reports after she was finished she noticed a small amount of blood on her underwear History of Present Illness The patient is an 80 year old female who presents to the Emergency Room with complaints of persistent constipation for the past four days. The patient tried to have a bowel movement this morning, but she was unable to pass the stool. Afterwards, the patient noticed some rectal bleeding. Source of History: patient Onset: 4 days Position: other (GI) Timing: other (persistent) Note: Other associated symptoms: rectal bleeding Review of Systems All systems have been listed, reviewed, and are negative other than those previously mentioned. Please see Additional Medical History Sheet. Past Medical & Surgical Medical Problems: (1) Diabetes mellitus (2) HTN (hypertension) (3) Osteoarthritis Family History No significant family history Social History Smoking Status: Never Smoker Drug Use: none Marital Status: Occupation Status: retired Current/Historical Medications Scheduled Amlodipine Besylate (Norvasc), 5 MG PO DAILY Aspirin (Aspirin Chewable), 81 MG PO DAILY Calcium Carbonate-Vitamin D (Calcium 600 + D), 1 TAB PO BID Docusate Sodium (Colace), 100 MG PO BID Ezetimibe/Simvastatin (Vytorin 10-20 mg), 10-20 MG PO DAILY Fish Oil (Leonard-3), 1 CAP PO BID Levothyroxine Sodium (Levothyroxine Sodium), 1 TAB PO DAILY Ranitidine (Zantac), 150 MG PO BID Sertraline (Zoloft), 50 MG PO DAILY Miscellaneous Medications Coenzyme Q10 (Ubidecarenone) (Co Q-10), 150 MG PO Allergies Coded Allergies: Caffeine (Verified Allergy, Unknown, ., 05/26/16) Uncoded Allergies: BRONCHODILATORS (Allergy, Unknown, 06/28/02) SYMPATHOMIMADR (Allergy, Unknown, 08/04/13) Physical Exam Vital Signs Date Time Temp Pulse Resp B/P Pulse Ox O2 Delivery O2 Flow Rate FiO2 05/26/16 11:21 76 20 119/65 100 05/26/16 09:17 36.5 83 18 152/81 97 Room Air Physical Exam GENERAL: Patient awake, alert, oriented x 3. Patient follows commands. Patient does not appear toxic. Patient is adequately hydrated and well- nourished. SKIN: No erythema, pallor, cyanosis or rash HEENT: Normal head, pupils equal, reactive to light and accommodation. Ears normal. Oral cavity and posterior pharynx appear normal. Neck: Without adenopathy, no neck vein distention. LUNGS: Clear to auscultation. No wheezes, no rales, no rhonchi. HEART: No murmurs. No gallops. No rubs ABDOMEN: Obese. No masses, no rebound, no hepatomegaly or splenomegaly. EXTREMITIES: No signs of trauma. No pedal or pretibial edema. No calf or thigh tenderness. NEUROLOGIC: Cranial nerves II-XII within normal limits. No gross motor sensory function deficits. RECTAL: Large external hemorrhoids, large amount of wendy-like stool in rectum with brown guaiac positive stool. Medical Decision & Procedures ED Course 1015: Past medical records reviewed. The patient was evaluated in room C6. A complete history and physical examination was performed. 1130: At this time, the patient had an enema treatment. Afterwards, she had significant improvement of her symptoms. 1145: Upon reevaluation, the patient appeared to have improvement of her symptoms. I discussed today's findings with her. She verbalized agreement of the treatment plan. The patient was discharged home. Medical Decision Differential diagnoses include constipation, hemorrhoids, or fissure. The patient was given a soapsuds enema with great results. The patient felt significantly better. The patient will be placed on Colace to soften her stools. I do not believe she requires the hemorrhoids to be treated at the present time. Impression Primary Impression: Constipation Additional Impression: External hemorrhoids Scribe Attestation The scribe's documentation has been prepared under my direction and personally reviewed by me in its entirety. I confirm that the note above accurately reflects all work, treatment, procedures, and medical decision making performed by me. Departure Information Dispostion Home / Self-Care Prescriptions Docusate Sodium (COLACE) 100 Mg Cap 100 MG PO BID, #60 CAP Prov: Dell Connor M.D. 05/26/16 Referrals Kulwant Yun M.D. (PCP) Forms HOME CARE DOCUMENTATION FORM, IMPORTANT VISIT INFORMATION Patient Instructions A Signature Page, [facility] Additional Instructions 1 Colace twice a day. Continue all of your current medications as prescribed. Follow-up with your family physician within the next 2-3 weeks. Problem Qualifiers
[2016-05-26 11:21] VITALS: BP 119/65; PULSE 76; O2SAT 100
[2016-05-26] MEDS ORDERED: DOCU-94 PO (11:30)
== END 2016-05-26 11:45 | disposition home or self-care (01) ==
LOC: C.EDB 09:10 → C.EDC 11:45
DX: K59.00 Constipation, unspecified (principal); K64.4 Residual hemorrhoidal skin tags; I10 Essential (primary) hypertension; E11.9 Type 2 diabetes mellitus without complications; Z79.82 Long term (current) use of aspirin

== ENCOUNTER → 2016-05-27 | Outpatient (CLI) | payer BC ==
[~2016-05-27] MED LIST changes: +COEN150C PO; +DOCU-94 PO; -LEVO25TA PO; +LEVO50TA6 PO; -MULT1TAB22 PO; +OMEG10007 PO; +SERT50TA PO; +ZNTT/150 PO
[2016-05-27 09:46] LABS: HEMATOCRIT 43.5 % (37-47); MEAN CELL VOLUME 96.2 fL (80-100); MEAN CORPUSCULAR HEMOGLOBIN 33.6 pg (25-34); MEAN CORPUSCULAR HGB CONC 34.9 g/dl (32-36); MEAN PLATELET VOLUME 10.1 fL (7.4-10.4); PLATELET COUNT 238 K/uL (130-400); RED BLOOD COUNT 4.52 M/uL (4.2-5.4)
[2016-05-27 09:55] LABS: URINE APPEARANCE CLEAR (CLEAR); URINE BILIRUBIN NEG (NEG); URINE COLOR YELLOW; URINE NITRITE NEG (NEG); URINE SPECIFIC GRAVITY 1.008 (1.000-1.030); UROBILINOGEN NEG (NEG)
[2016-05-27 10:02] LABS: MANUAL MICROSCOPIC REQUIRED? NO; REVIEW REQ? NO
[2016-05-27 10:25] LABS: BLOOD UREA NITROGEN 24 mg/dl (7-18); BUN/CREATININE RATIO 17.1 (10-20); CALCIUM 9.4 mg/dl (8.5-10.1); CARBON DIOXIDE 27 mmol/L (21-32); CHLORIDE 105 mmol/L (98-107); GLUCOSE 194 mg/dl (70-99); POTASSIUM 3.5 mmol/L (3.5-5.1); SODIUM 142 mmol/L (136-145)
[2016-05-27 10:27] LABS: PHOSPHORUS 2.6 mg/dl (2.5-4.9)
[2016-05-27 11:14] LABS: URINE PROTIEN/CREAT RATIO 0.1 (0-0.2); URINE TOTAL PROTEIN 8.7 mg/dl (0-11.9)
== END | disposition home or self-care (01) ==
LOC: C.LAB1850 07:30
PROVIDERS: ATTEND Internal Medicine Nephrology
DX: I12.9 Hypertensive chronic kidney disease with stage 1 through stage 4 chronic kidney disease, or unspecified chronic kidney disease (principal); N18.3 Chronic kidney disease, stage 3 (moderate); E55.9 Vitamin D deficiency, unspecified

== ENCOUNTER → 2016-07-07 | Outpatient (CLI) | payer BC ==
--- NOTE | 2016-07-07 15:33 | MAMMOGRAPHY REPORT ---
BILATERAL DIGITAL SCREENING MAMMOGRAM WITH CAD: 07/07/2016 CLINICAL HISTORY: Routine screening examination. TECHNIQUE: Bilateral CC, MLO and repeat right MLO views were obtained. Current study was also evalu ated with a Computer Aided Detection (CAD) system. COMPARISON: Comparison is made to exams dated: 06/23/2015 mammogram, 06/14/2013 mammogram, 06/20/2014 ma mmogram, 06/08/2012 mammogram, 06/02/2011 mammogram, and 05/27/2010 mammogram - [facility] enter. BREAST COMPOSITION: There are scattered areas of fibroglandular density in both breasts. FINDINGS: There are mild vascular calcifications in the breasts and a few scattered punctate benign- appearing microcalcifications. No suspicious mass, architectural distortion or cluster of suspiciou s microcalcifications is seen. IMPRESSION: ACR BI-RADS CATEGORY 1: NEGATIVE There is no mammographic evidence of malignancy. A 1 year screening mammogram is recommended. The p atient will receive written notification of the results. Approximately 10% of breast cancers are not detected with mammography. A negative mammographic repor t should not delay biopsy if a clinically suggestive mass is present. Diane Ordaz M.D. ay/:07/07/2016 14:48:42 Press Operator Assistant: Amanda SWANSON(Doreen)(M), [facility] letter sent: Normal 1/2 BI-RADS Code: ACR BI-RADS Category 1: Negative
== END | disposition home or self-care (01) ==
LOC: C.MAMM 13:51
PROVIDERS: ATTEND Obstetrics & Gynecology
DX: Z12.31 Encounter for screening mammogram for malignant neoplasm of breast (principal)

== ENCOUNTER → 2016-11-17 | Outpatient (CLI) | payer BC ==
[2016-11-17 09:34] LABS: HEMATOCRIT 43.8 % (37-47); MEAN CELL VOLUME 97.3 fL (80-100); MEAN CORPUSCULAR HGB CONC 32.9 g/dl (32-36); MEAN PLATELET VOLUME 9.4 fL (7.4-10.4); PLATELET COUNT 245 K/uL (130-400); WHITE BLOOD COUNT 4.91 K/uL (4.8-10.8)
[2016-11-17 09:40] LABS: URINE APPEARANCE CLEAR (CLEAR); URINE BILIRUBIN NEG (NEG); URINE COLOR DK YELLOW; URINE NITRITE NEG (NEG); URINE PH 6.5 (4.5-7.5); URINE SPECIFIC GRAVITY 1.022 (1.000-1.030); UROBILINOGEN NEG (NEG)
[2016-11-17 09:42] LABS: MANUAL MICROSCOPIC REQUIRED? NO; REVIEW REQ? NO
[2016-11-17 09:49] LABS: BLOOD UREA NITROGEN 30 mg/dl (7-18); BUN/CREATININE RATIO 23.1 (10-20); CALCIUM 9.2 mg/dl (8.5-10.1); CARBON DIOXIDE 32 mmol/L (21-32); CHLORIDE 106 mmol/L (98-107); GLUCOSE 131 mg/dl (70-99); POTASSIUM 3.9 mmol/L (3.5-5.1); SODIUM 144 mmol/L (136-145)
[2016-11-17 09:50] LABS: PHOSPHORUS 2.8 mg/dl (2.5-4.9)
[2016-11-17 09:54] LABS: URINE PROTIEN/CREAT RATIO 0.1 (0-0.2); URINE TOTAL PROTEIN 14.5 mg/dl (0-11.9)
== END | disposition home or self-care (01) ==
LOC: C.LAB1850 07:12
PROVIDERS: ATTEND Internal Medicine Nephrology
DX: E11.9 Type 2 diabetes mellitus without complications (principal); E78.00 Pure hypercholesterolemia, unspecified; N18.3 Chronic kidney disease, stage 3 (moderate); E55.9 Vitamin D deficiency, unspecified; I12.9 Hypertensive chronic kidney disease with stage 1 through stage 4 chronic kidney disease, or unspecified chronic kidney disease

== ENCOUNTER → 2017-05-19 | Outpatient (CLI) | payer BC ==
[~2017-05-19] MED LIST changes: -DOCU-94 PO; +EZET10TA63 PO; -VYT1020 PO
[2017-05-19 09:44] LABS: HEMATOCRIT 42.5 % (37-47); HEMOGLOBIN 14.9 g/dL (12.0-16.0); MEAN CELL VOLUME 98.6 fL (80-100); MEAN CORPUSCULAR HEMOGLOBIN 34.6 pg (25-34); MEAN CORPUSCULAR HGB CONC 35.1 g/dl (32-36); MEAN PLATELET VOLUME 9.9 fL (7.4-10.4); PLATELET COUNT 211 K/uL (130-400); RED CELL DISTRIBUTION WIDTH CV 13.1 % (11.5-14.5); RED CELL DISTRIBUTION WIDTH SD 47.4 fL (36.4-46.3); WHITE BLOOD COUNT 4.89 K/uL (4.8-10.8)
[2017-05-19 11:16] LABS: ALBUMIN 3.5 gm/dl (3.4-5.0); BLOOD UREA NITROGEN 32 mg/dl (7-18); CALCIUM 9.1 mg/dl (8.5-10.1); CARBON DIOXIDE 31 mmol/L (21-32); CREATININE 1.26 mg/dl (0.60-1.20); GLUCOSE 164 mg/dl (70-99); POTASSIUM 3.3 mmol/L (3.5-5.1); SODIUM 139 mmol/L (136-145)
[2017-05-19 11:17] LABS: PHOSPHORUS 2.4 mg/dl (2.5-4.9)
== END | disposition home or self-care (01) ==
LOC: C.LAB1850 07:35
PROVIDERS: ATTEND Internal Medicine Nephrology
DX: E11.9 Type 2 diabetes mellitus without complications (principal); I12.9 Hypertensive chronic kidney disease with stage 1 through stage 4 chronic kidney disease, or unspecified chronic kidney disease; N18.3 Chronic kidney disease, stage 3 (moderate); E55.9 Vitamin D deficiency, unspecified

== ENCOUNTER → 2017-07-11 | Outpatient (CLI) | payer BC ==
[~2017-07-11] MED LIST changes: +RANI150T85 PO; -ZNTT/150 PO
--- NOTE | 2017-07-12 07:57 | MAMMOGRAPHY REPORT ---
BILATERAL DIGITAL SCREENING MAMMOGRAM TOMOSYNTHESIS WITH CAD: 07/11/2017 CLINICAL HISTORY: Routine screening. Patient has no complaints. TECHNIQUE: Breast tomosynthesis in addition to standard 2D mammography was performed. Current study was also evaluated with a Computer Aided Detection (CAD) system. COMPARISON: Comparison is made to exams dated: 07/07/2016 mammogram, 06/23/2015 mammogram, 06/20/2014 yoni mogram, 06/14/2013 mammogram, 06/08/2012 mammogram, and 06/02/2011 mammogram - [facility]. BREAST COMPOSITION: There are scattered areas of fibroglandular density in both breasts. FINDINGS: There are mild to moderate vascular calcifications in the breasts. No suspicious mass, arc hitectural distortion or cluster of microcalcifications is seen. IMPRESSION: ACR BI-RADS CATEGORY 1: NEGATIVE There is no mammographic evidence of malignancy. A 1 year screening mammogram is recommended. The pa tient will receive written notification of the results. Approximately 10% of breast cancers are not detected with mammography. A negative mammographic report should not delay biopsy if a clinically suggestive mass is present. Diane Ordaz M.D. ay/:07/11/2017 15:54:22 Regulation Supervisor: Joanne SWANSON(Doreen)(Xavi), [facility] letter sent: Normal 1/2 BI-RADS Code: ACR BI-RADS Category 1: Negative
== END | disposition home or self-care (01) ==
LOC: C.MAMM 13:37
PROVIDERS: ATTEND Obstetrics & Gynecology
DX: Z12.31 Encounter for screening mammogram for malignant neoplasm of breast (principal)